=== PATIENT | male | born 1980 | race Caucasian/White ===

== ENCOUNTER 2021-02-03 19:29 | Emergency (ER) | payer MEDICARE, MEDICAID ==
[~2021-02-03] VITALS: Ht 185.4 cm; Wt 95.5 kg
[2021-02-03 20:37] LABS: BASOPHILS % (AUTO) 0.2 % (0-1); EOSINOPHILS # (AUTO) 0.1 X10'3 (0-0.9); EOSINOPHILS % (AUTO) 1.4 % (0-6); HEMATOCRIT 43.8 % (42.0-52.0); HEMOGLOBIN 15.1 g/dl (14.0-17.9); LYMPHOCYTES # (AUTO) 2.1 X10'3 (1.1-4.8); LYMPHOCYTES % (AUTO) 24.6 % (21-51); MEAN CORPUSCULAR HEMOGLOBIN 32.9 PG (27.0-31.0); MEAN CORPUSCULAR HGB CONC 34.5 g/dL (33.0-36.5); MEAN CORPUSCULAR VOLUME 95.4 FL (78-98); MEAN PLATELET VOLUME 8.8 FL (7.4-10.4); MONOCYTES # (AUTO) 0.7 X10'3 (0-0.9); MONOCYTES % (AUTO) 7.8 % (2-12); NEUTROPHILS # (AUTO) 5.5 X10'3 (1.8-7.7); PLATELET COUNT 304 X10'3 (140-440); RED BLOOD COUNT 4.59 X10'6 (4.70-6.10); RED CELL DISTRIBUTION WIDTH 13.4 % (11.5-14.5); WHITE BLOOD COUNT 8.4 X10'3 (4.5-11.0)
[2021-02-03 20:45] LABS: ALANINE AMINOTRANSFERASE 34 U/L (12-78); ALBUMIN 4.1 G/DL (3.4-5.0); ALBUMIN/GLOBULIN RATIO 1.1 (1.1-1.5); ALKALINE PHOSPHATASE 61 IU/L (46-116); ANION GAP 13 (8-16); ASPARTATE AMINO TRANSFERASE 25 U/L (10-37); BILIRUBIN,TOTAL 0.3 MG/DL (0.1-1.0); BLOOD UREA NITROGEN 15 MG/DL (7-18); BUN/CREATININE RATIO 13.3 (5.4-32.0); CALCIUM 8.8 MG/DL (8.5-10.1); CHLORIDE 105 MMOL/L (99-107); CREATININE 1.13 MG/DL (0.60-1.10); GLUCOSE 119 MG/DL (70-104); POTASSIUM 3.5 MMOL/L (3.5-5.1); SODIUM 144 MMOL/L (135-145); TOTAL CARBON DIOXIDE 26.1 MMOL/L (24-32); TOTAL PROTEIN 7.7 G/DL (6.4-8.2); eGFR 73 ML/MIN
[2021-02-03] MEDS ORDERED: PANT-47 PO (21:09)
[2021-02-03 21:21] VITALS: BP 130/73
== END 2021-02-03 21:24 | disposition home or self-care (01) ==
LOC: ER 19:29
DX: R07.89 Other chest pain (principal); E11.9 Type 2 diabetes mellitus without complications; K21.9 Gastro-esophageal reflux disease without esophagitis; F12.90 Cannabis use, unspecified, uncomplicated; F17.200 Nicotine dependence, unspecified, uncomplicated; Z72.89 Other problems related to lifestyle; Z98.890 Other specified postprocedural states; Z56.0 Unemployment, unspecified; Z79.899 Other long term (current) drug therapy
CPT/HCPCS: 36415; 71045; 80053; 83880; 84484; 85025; 93005; 99285

== ENCOUNTER 2024-11-24 17:04 | Inpatient (IN) | payer MEDICAID, MEDICARE ==
[~2024-11-24] VITALS: Ht 185.4 cm; Wt 88.6 kg
[~2024-11-24 17:04] MED LIST: PANT-47 PO
--- NOTE | 2024-11-24 17:21 | ELECTROCARDIOGRAPH REPORT ---
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 JEREMI Garcia Measurements Intervals [place] Rate: 88 P: 87 [place]: 142 QRS: 91 QRSD: 91 T: 36 QT: 327 QTc: 396 Interpretive Statements Sinus rhythm Right atrial enlargement Borderline right axis deviation Consider left ventricular hypertrophy ST elev, probable normal early repol pattern Electronically Signed On 11-24-2024 17:59:[address] JEREMI Garcia Please click the below link to view image of tracing.
--- NOTE | 2024-11-24 17:24 | Physician Documentation ---
History of Present Illness ~ Chief Complaint: Chest Pain Stated Complaint: MULTIPLE MED COMPLAINTS Time Seen by MD: 18:27 [facility] HPI This is a 44-year-old male who presents with one-week of chest tightness, patient reports chest tightness is across his entire central chest though does not radiate, patient reports feeling of lightheadedness and episodes of near- syncope in the past week. Patient additionally reports intermittent feeling of numbness to left arm. Patient reports he is on testosterone therapy, otherwise the only other medications he takes are related to chronic back pain. Medication Reconciliation Allergies: Coded Allergies: morphine (Verified Allergy, Unknown, 02/03/21) Scheduled Aspirin (Ecotrin*), 1 TAB PO DAILY Atorvastatin Calcium (Atorvastatin Calcium), 40 MG PO DAILY Gabapentin (Gabapentin), 300 PO BID, (Reported) Metoprolol Succinate (Metoprolol Succinate), 25 MG PO DAILY Scheduled PRN Acetaminophen (Tylenol), 1-2 TAB PO QID PRN PRN for pain or fever, (Reported) Nitroglycerin SL* (Nitrostat SL*), 0.4 MG SL Q5M PRN for chest pain Discontinued Medications Meloxicam (Meloxicam), 1 TAB PO DAILY, (Reported) Pantoprazole Sodium (PROTONIX tablet), 1 TAB PO DAILY Discontinued Reason: patient no longer taking Past Medical History Past Medical History: GERD, Diabetes Past Surgical History: orthopedic surgeries Alcohol Use: Occasionally Drug Use: marijuana Lives with: Spouse Lives In: Home Occupation: unemployed, other Review of Systems ROS As stated above in the HPI, otherwise all systems are reviewed and negative. Physical Exam Vital Signs: Temperature: 98.6, Source: Temporal, Heart Rate: 104, Respiratory Rate: 18, BP: 150/81, Pulse Oximetry: 97, Weight: 87.750 Oxygen Flow Rate: 0 Physical Exam VITALS: Reviewed and as above. GENERAL: Alert, nontoxic appearing, no apparent distress. HEENT: RESPIRATORY: No increased work of breathing, no respiratory distress, speaking in full clear sentences, clear lung sounds in all mg CHEST: Nontender to palpation CV: Regular rate and rhythm no murmur BACK: GI: MUSCULOSKELETAL: SKIN: NEURO: PSYCH: Progress Progress Note I spoke with hospitalist resident who kindly accepts patient for admission. Results/Orders Results/Orders Orders - IVRGINIA NOVA Hospitalist (11/24/24 20:52) Fill Out Med Reconciliation (11/24/24 20:52) Completed Orders - VIRGINIA NOVA W[employer] STOCK CLERK Aspirin 81mg Chew Tablet (Aspirin 81mg C (11/24/24 19:40) Nitroglycerin Sublingual Tab (Nitrostat (11/24/24 19:40) Stat Ekg (11/24/24 19:37) Vital Signs 11/24/24 11/24/24 11/24/24 11/24/24 17:12 19:02 19:12 19:13 Temp 98.6 Pulse 104 85 Resp 18 18 18 B/P (MAP) 150/81 150/84 (106) Pulse Ox 97 98 O2 Delivery Room Air* O2 Flow Rate 0 0 0 FiO2 21 Laboratory Tests Test 11/24/24 17:28 11/24/24 18:25 11/24/24 18:55 11/24/24 20:07 White Blood Count 10.7 Red Blood Count 4.88 Hemoglobin 16.2 Hematocrit 46.7 Mean Corpuscular Volume 95.8 Mean Corpuscular Hemoglobin 33.2 H Mean Corpuscular Hemoglobin Concent 34.6 Red Cell Distribution Width 14.7 H Platelet Count 457 H Mean Platelet Volume 7.7 Neutrophils (%) (Auto) 69.1 Lymphocytes (%) (Auto) 20.8 L Monocytes (%) (Auto) 7.8 Eosinophils (%) (Auto) 1.8 Basophils (%) (Auto) 0.5 Neutrophils # (Auto) 7.4 Lymphocytes # (Auto) 2.2 Monocytes # (Auto) 0.8 Eosinophils # (Auto) 0.2 Basophils # (Auto) 0.1 CBC Comment Sodium Level 136 Potassium Level 4.1 Chloride Level 98 L Carbon Dioxide Level 28.7 Anion Gap 9 Blood Urea Nitrogen 20 H Creatinine 1.39 H Estimated GFR/1.73 m2 56 BUN/Creatinine Ratio 14.4 Glucose Level 102 Hemoglobin A1c 5.4 Calcium Level 9.7 Phosphorus Level 4.4 Magnesium Level 2.3 Total Bilirubin 0.2 Aspartate Amino Transf (AST/SGOT) 30 Alanine Aminotransferase (ALT/SGPT) 32 Alkaline Phosphatase 113 Troponin I High Sensitivity 81 *H 73 69 Pro-B-Type Natriuretic Peptide < 30 Total Protein 8.3 H Albumin 4.4 Globulin 3.9 Albumin/Globulin Ratio 1.1 Thyroid Stimulating Hormone (TSH) 1.70 Chemistry Comments Urine Specimen Description Cln catch midstream Urine Color Yellow Urine Clarity Clear Urine pH 7.0 Urine Specific [place] 1.010 Urine Protein Negative Urine Glucose (UA) Negative Urine Ketones Negative Urine Occult Blood Negative Urine Nitrite Negative Urine Bilirubin Negative Urine Urobilinogen 0.2 Urine Leukocyte Esterase Negative Volume Urine Centrifuged 10 ml Urine Eosinophils No eos Urine Random Creatinine 114.0 Urine Random Sodium 102 Urine Comment Urine Opiates Screen Negative Urine Methadone Screen Negative Urine Fentanyl Screen Negative Urine Barbiturates Screen Negative Urine Phencyclidine Screen Negative Urine Amphetamines Screen Negative Urine Benzodiazepines Screen Negative Urine Cocaine Screen Negative Urine Cannabinoids Screen Positive Drug Screen Comment Troponin I High Sens Percent Delta 9 5 Troponin I Hi Sens Absolute Change -8 -4 EKG/XRAY/CT/US/VASC/MRI EKG #1: Additional Comment EKG at 5:19 p.m. Interpreted by myself as: Sinus rhythm at a rate of 88, normal axis, nonspecific ST-T segment changes EKG #2: Additional Comment EKG at 7:51 p.m. interpreted by myself as: Sinus rhythm at a rate of 65 with PVC, normal axis, nonspecific ST segment changes Chest X-Ray : Additional Comments Exam: CHEST,SINGLE VIEW CHEST RADIOGRAPH Indication: CP Technique: Single frontal view of the chest was obtained Comparison: CHEST,SINGLE VIEW on DOS: 02/03/21 FINDINGS: Lines and Tubes: None Lungs: No focal consolidation. Pleura: No effusion. No pneumothorax. Cardiomediastinal contours: Unremarkable Bones: No acute osseous abnormality. IMPRESSION: No acute cardiopulmonary disease. Electronically Signed by:ZOE FISH DO Date & Time: 11/24/241758 Dictated by: ZOE FISH DO Dictation date and time: 11/24/241758 I have reviewed and agree with the radiology report. I have reviewed and interpreted the imaging as: No focal consolidation or pneumothorax Heart Score: Heart Score Response (Comments) Value History Highly Suspicious 2 EKG Repolarization Disturb 1 Age <45 0 Risk Factors No known risk factors 0 Troponin 1-2 x's Normal limit 1 Total 4 Medical Decision Making Findings MSE performed in triage and patient returned to ED lobby by nursing staff to await available ED room. ACS protocol initiated by nursing staff. This 44-year-old male presented with one-week of chest pressure and shortness of breath along with several episodes of near-syncope, that has nonspecific ST changes on initial EKG and initial troponin was elevated, given these findings patient has a heart score of four and will require inpatient admission for further monitoring and evaluation, it was reassuring repeat troponin did decrease and patient is hemodynamically stable. Additionally patient responded well to a dose of nitroglycerin with the reported decrease in chest pain. Hospitalist team paged and accepts patient for admission. Differential Dx:Considerations: Include: angina, aortic dissection, chest wall pain, cholelithiasis, CHF, costochondritis, esophageal reflux/spasm, gastritis, herpes zoster, myocardial infarction, pericarditis, pleuritis, pneumonia, pneumothorax, pulmonary embolus Departure Disposition: 09 ADMITTED INPATIENT Admitted to Inpatient Unit: to hospitalist Impression: Primary Impression: Chest pain Qualified Codes: R07.9 - Chest pain, unspecified Condition: Guarded Referrals: NO PRIMARY CARE PROVIDER (PCP) Prescriptions Aspirin (Ecotrin*) 81 Mg Tablet.dr 1 TAB PO DAILY, #30 TAB.SR Prov: JEROME BENAVIDEZ RES 11/26/24 Metoprolol Succinate (Metoprolol Succinate) 25 Mg Tab.sr.24h 25 MG PO DAILY, #30 TAB.SR Prov: JEROME BENAVIDEZ RES 11/26/24 Nitroglycerin SL* (Nitrostat SL*) 0.4 Mg Tablet 0.4 MG SL Q5M PRN for chest pain, #10 TAB Prov: JEROME BENAVIDEZ RES 11/26/24 Atorvastatin Calcium (Atorvastatin Calcium) 20 Mg Tablet 40 MG PO DAILY for 30 Days, #60 TAB Prov: JEROME BENAVIDEZ RES 11/26/24 Signature Scribe Signature: No Scribe Attestation: The note accurately reflects work and decisions made by me.CHRISTY Chan 11/27/24 12:14 [facility] NOVA Nov 24, 2024 17:24
[2024-11-24 17:42] LABS: MEAN PLATELET VOLUME 7.7 FL (7.4-10.4); RED CELL DISTRIBUTION WIDTH 14.7 % (11.5-14.5)
[2024-11-24 18:01] LABS: CREATININE 1.39 MG/DL (0.60-1.10); TOTAL CARBON DIOXIDE 28.7 MMOL/L (24-32); eCRCL 78 ML/MIN; eGFR 56 ML/MIN
--- NOTE | 2024-11-24 18:01 | RADIOLOGY REPORT ---
CHEST RADIOGRAPH Indication: CP Technique: Single frontal view of the chest was obtained Comparison: CHEST,SINGLE VIEW on DOS: 02/03/21 FINDINGS: Lines and Tubes: None Lungs: No focal consolidation. Pleura: No effusion. No pneumothorax. Cardiomediastinal contours: Unremarkable Bones: No acute osseous abnormality. IMPRESSION: No acute cardiopulmonary disease.
[2024-11-24 18:11] LABS: PRO BRAIN NATRIURETIC PEPTIDE < 30 PG/ML (0-125)
--- NOTE | 2024-11-24 19:54 | ELECTROCARDIOGRAPH REPORT ---
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
[2024-11-24] MEDS ORDERED: potassium Cl 20 mEq SR tablet PO PRN ×2 (21:45)
[2024-11-24] MEDS ORDERED: magnesium sulf-water 2g/50mL 50 ML IV PRN (21:45)
[2024-11-24] MEDS ORDERED: magnesium Cl slow-release 64mg tablet PO PRN (21:45)
[2024-11-24] MEDS ORDERED: ondansetron/PF 4mg/2ml inj IV PRN (21:45)
[2024-11-24] MEDS ORDERED: mag hydrox/Alum hydrox/simeth 30ml oral suspension PO PRN (21:45)
[2024-11-24] MEDS ORDERED: magnesium sulf-water 4G/100mL 100 ML IV PRN (21:45)
[2024-11-24] MEDS ORDERED: potassium Cl 40MEQ/1/2NS 520ml 520 ML IV PRN (21:45)
[2024-11-24] MEDS ORDERED: magnesium hydroxide 30ml (MOM) UD suspension PO PRN (21:45)
[2024-11-24 22:00] VITALS: BP 148/77; PULSE 74; RESP 14; TEMP 97.4; O2SAT 97
[2024-11-24 22:00] LABS: PHOSPHORUS 4.4 MG/DL (2.3-4.5)
--- NOTE | 2024-11-24 22:16 | HISTORY AND PHYSICAL-Residence ---
History & Physical Providers to CC Resident Creating Document: JOSE COLON, ELLYN ~ History of Present Illness Primary Medical Doctor: LUCA (past) Reason for Admit\Complaint: Chest pain, rule out ACS History of Present Illness For the year old male with past medical history of chronic back pain who presented to the ED with chief complaint of chest discomfort since the last two weeks. He reports that he has a chest discomfort in the center of the chest that feel like a pill stuck in his esophagus that has been present over the last two weeks and has been on and off. Reported that the chest discomfort worsens with taking deep breaths. Denied any association with the exertion. He also reports that he has a associated difficulty breathing and shortness of breaths that has been worsening over the last two weeks. He stated that he has been more short of breath than usual while working out. He stated that he has been working out more aggressively over the last two weeks as he has been preparing for a [employer] and has been more anxious than usual. He stated that he has noticed that he has been dizzy while working out also correlates with his chest pain. He denies any loss of consciousness or trauma to the head because of the dizziness. The dizziness is not related to change of position or getting up suddenly. He denied any alcohol or recreational drug use. He also reports associated increased sweating in his palms. He denied any recent fever or chills. He denied any headaches, confusion, cough, nausea, vomiting, abdominal pain, diarrhea or constipation. The patient's at the bedside and reported that the patient has been extremely anxious and stress test since the last two weeks. She stated that the patient has not been himself and thinks it is most likely is due to stress. They reported that the patient significantly anxious and [place] He took CBD gummies of his which knocked him out and fell asleep in the journey. The patient also reported that he is on testosterone supplementation. He stated that currently the chest discomfort is very minimal and improved after taking the nitroglycerin in the ER. Allergies: Coded Allergies: morphine (Verified Allergy, Unknown, 02/03/21) Home Medications Home Medications Active PROTONIX tablet (Pantoprazole Sodium) 40 Mg Tablet. 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 Take CBD gummies very rarely. Smoking: Non-Smoker Alcohol Use: Occasionally Drug Use: Marijuana Lives with: Spouse Lives In: Home Occupation: unemployed, other ROS ROS As stated above in the HPI, otherwise all systems are reviewed and negative. Exam Vitals: Vital Signs Date Time Temp Pulse Resp B/P (MAP) Pulse Ox O2 Delivery O2 Flow Rate FiO2 11/24/24 19:13 85 18 150/84 (106) 98 0 11/24/24 19:12 Room Air* 21 11/24/24 17:12 98.6 General: General: Awake and Alert, looks anxious but is not in any acute distress. HEENT: Conjunctiva pink, Sclera clear, Mucus Membranes moist. Neck: Supple without masses and tenderness. Resp: Unlabored. Lungs clear to auscultation bilaterally. Heart: Regular Rate and rhythm, normal S1 and S2 without murmur, rub or gallop. Abdomen: Soft and non tender no organomegaly Extremities: No cyanosis,clubbing or edema. Skin: Warm and Dry. Neurology: Cranial nerves 2-12 intact. No focal motor or sensory deficits. Musculoskeletal: No deformities noted. No restricted range of motions. Diagnostic Data Last Recorded Lab Results: 11/24/24 1728 11/24/24 1728 Advance Care Planning Advanced Care planning: Add on additional 30 min Additional Plan Nonspecific chest pain Rule out acute coronary syndrome Heart score-four Initial EKG shows sinus rhythm with no significant ST segment elevations. There is signs of right atrial enlargement with a right axis deviation. Repeat EKG showed sinus rhythm with a no ST segment changes. The patient's initial troponin was elevated at 81. The next two troponins trended down to 73, 69. Patient received one dose of aspirin 324 mg in the ER. Nitroglycerin 0.4 mg sublingually for chest pain. Continue telemetry monitoring. Repeat EKG for the chest pain returns. We will order a Lexiscan tomorrow in the a.m. to check for any underlying reversible ischemia. Echocardiography to be done. Follow up with the A1c, lipid panel and TSH. P.o. Protonix for GI prophylaxis Acute kidney injury Most likely secondary to vasomotor nephropathy from dehydration. Follow up with the urine lytes and other urinary studies. Started the patient on IV fluids for hydration. Continue monitoring the patient's renal function C. Chronic back pain We will restart the patient's home medications once med reconciliation is done. Currently denied any severe pain. CODE STATUS: Full code DVT prophylaxis: SubQ heparin GI prophylaxis: P.o. Protonix Diet: NPO for Lay Disposition: Continue close monitoring. Follow up with Lexiscan. Anticipate discharge home in the next 48 hours. Jose Colon MD Internal Medicine Resident, PGY-3 Addendum I personally reviewed the chart, labs and imaging and reviewed the patient with the team. I agree with the assessment and plan as documented by the resident. Patient was seen through remote audio-visual assessment through HIPAA compliance setup. Date of Service: Nov 24, 2024 Billing Provider: PJ HERNANDEZ MD,JOSE DAVISON, [facility] Nov 24, 2024 22:16 PJ HERNANDEZ MD Nov 25, 2024 01:02
[2024-11-24] MEDS ORDERED: ACET-890 PO (22:22)
[2024-11-24] MEDS ORDERED: MELO-102 PO (22:22)
[2024-11-24] MEDS ORDERED: GABA-1405 PO (22:22)
[2024-11-24 22:25] LABS: LEUKOCYTE ESTERASE ,URINE NEGATIVE (Neg); NITRITES, URINE NEGATIVE (Neg); OCCULT BLOOD,URINE NEGATIVE (Neg)
[2024-11-24] MEDS ORDERED: metoprolol tartrate 1mg/ml inj IV PRN (22:25)
[2024-11-24] MEDS ORDERED: aminophylline 250mg/10ml inj. IV PRN (22:25)
[2024-11-24 22:28] LABS: UA COLLECTION TYPE CLN CATCH MIDSTREAM
[2024-11-24 22:32] LABS: CREATININE,URINE RANDOM 114.0 MG/DL; URINE AMPHETAMINE SCREEN NEGATIVE (Neg); URINE BARBITUATE SCREEN NEGATIVE (Neg); URINE BENZODIAZEPINES SCREEN NEGATIVE (Neg); URINE CANNABINOID SCREEN POSITIVE (Neg); URINE COCAINE SCREEN NEGATIVE (Neg); URINE METHADONE SCREEN NEGATIVE (Neg); URINE OPIATE SCREEN NEGATIVE (Neg); URINE PHENCYCLIDINE SCREEN NEGATIVE (Neg)
[2024-11-24 22:47] LABS: UA EOSINOPHILS NO EOS /HPF
[2024-11-24] MEDS: normal saline 1000ml 1,000 ML IV SCH (23:23)
[2024-11-25] VITALS (16 sets, daily range): BP systolic 111–142; BP diastolic 38–83; PULSE 60–107; RESP 10–22; TEMP 97.3–97.9; O2SAT 97–98
[2024-11-25 02:18] LABS: MEAN PLATELET VOLUME 7.9 FL (7.4-10.4); RED CELL DISTRIBUTION WIDTH 14.9 % (11.5-14.5)
[2024-11-25 02:47] LABS: CHOL/HDL RATIO 9.3 (0.00-4.99); CREATININE 1.29 MG/DL (0.60-1.10); LDL CHOLESTEROL 228 MG/DL (50-100); TOTAL CARBON DIOXIDE 31.1 MMOL/L (24-32); eCRCL 84 ML/MIN; eGFR 61 ML/MIN
[2024-11-25] MEDS: K and/or MAG REPLACEMENT MC SCH (08:00)
[2024-11-25] MEDS: docusate sod 100mg capsule PO SCH (08:00)
[2024-11-25] MEDS ORDERED: pantoprazole 40mg Tablet.DR PO SCH (08:05)
[2024-11-25] MEDS: pantoprazole 40mg Tablet.DR PO SCH (08:19)
[2024-11-25] MEDS: heparin, porcine 5000 units/ml vial SQ SCH (08:19)
[2024-11-25] MEDS: aspirin 81mg, enteric-coated 1 TAB TABLET.DR PO SCH (08:19)
[2024-11-25] MEDS: regadenoson 0.4mg/5ml syringe IV PRN (09:18)
--- NOTE | 2024-11-25 11:13 | RADIOLOGY REPORT ---
Reason for study/Clinical History: Chest pain Comparison Study: None Myocardial Perfusion Study with SPECT Technique: The patient received an intravenous injection of 8.0 mCi of technetium-99m Sestamibi whi renetta at rest. After a short delay, SPECT tomographic images of the heart were obtained. The patient traci pike went to the stress lab where they received an intravenous Lexiscan utilizing standard protocol. 32.0 mCi of technetium-99m Sestamibi was injected intravenously immediately after the start of the infusion. Gated SPECT tomographic images of the heart were acquired and processed. Findings: Rotating planar images show no significant attenuation artifact. The left ventricular size is within normal limits. Stress tomographic images demonstrate normal perfusion. Resting tomographic images demonstrate a similar pattern. Gated portion of the study shows no myocardial thickening. The left ventricular ejection fraction is 40%. (normal greater than 50%) Impression: Normal left ventricular size, wall motion, and function, without evidence of infarction or of myocard ium at ischemic risk. The left ventricular ejection fraction is 40%.
--- NOTE | 2024-11-25 11:38 | PROGRESS NOTE- Residence ---
Progress Note - Resident Providers to CC Resident Creating Document: PATRICIA BURNS, ELLYN CC: AMOR MORGAN MD ~ Antibiotic Timeout Antibiotic Ordered?: No Subjective Patient was seen and examined with his by his side. Patient still complains of left-sided numbness. Denies any chest pain today. Patient underwent his Lexiscan today which showed EF of 40%. Echocardiogram reported EF of 65-70% Objective Vital Signs Date Time Temp Pulse Resp B/P (MAP) Pulse Ox O2 Delivery O2 Flow Rate FiO2 11/25/24 09:47 84 18 122/56 98 Room Air 11/25/24 02:00 97.9 11/24/24 19:13 0 11/24/24 19:12 21 General: Awake, oriented to person, place and time, HEENT: Conjunctive are pink, sclerae clear, no icterus, pupil is equal in both sides, reactive to light, no ear discharge, no pharyngeal erythema or an edema. Right cauliflower ear noted Neck: Supple, no JVD, no lymphadenopathy and thyromegaly. Chest: Equal air entry on both lungs, no additional sounds no rhonchi no wheezing at the moment. Cardiovascular: S1-S2 regular sinus rhythm and, regular rate, no gallops, no rubs, no murmurs Abdomen: No visible peristalsis, Bowel sounds present on auscultation, soft, no guarding, no rigidity Extremities: No obvious deformities, no pitting edema bilaterally, capillary refill intact, peripheral pulsations are intact on both sides Central Nervous System: No focal neurological deficits, no motor or sensory weakness in all 4 extremities, could move all 4 extremities, 2+ deep tendon reflexes, negative Babinski. Complains of numbness left arm Musculoskeletal: No joint swelling, deformities, inflammations, and no scoliosis and back tenderness Skin: Warm and dry. Result Diagram: 11/25/2414411/25/24 014 Plan Plan Unstable angina, ACS ruled out Heart score-4 Pain was rated 7/10 in intensity and radiating to his back, increased chest pain on exertion, deep breaths Initial EKG showed sinus rhythm with no significant ST segment elevations. Right axis deviation Repeat EKG showed sinus rhythm with a no ST segment changes. The patient's initial troponin was elevated at 81, 73, 69(trended down) Patient received one dose of aspirin 324 mg and nitroglycerin 0.4 mg sublingual in the ER Lexiscan done today reported, LVEF 40%, normal left ventricular size and wall motion. Echocardiogram reported LVEF is 65-70%.Normal LV size and wall thickness. Overall systolic function is normal. 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 Plan -Continue telemetry monitoring -continue monitoring the patient's blood pressure -follow-up with D-dimer -initiated the patient on atorvastatin 40 mg -continue aspirin 81 mg Hyperlipidemia(newly diagnosed) ASCVD score 12.4% Triglycerides 334, cholesterol 333, LDL cholesterol 229 Plan -initiated the patient on atorvastatin 40 mg -continue aspirin 81 mg Prerenal acute kidney injury secondary to vasomotor nephropathy FENA <0.9% Downtrending of creatinine from 1.3 to 1.2 today Plan: Continue IV fluids Chronic back pain Patient normally takes gabapentin Hold gabapentin for now CODE STATUS: Full code DVT prophylaxis: SubQ heparin GI prophylaxis: Protonix Diet: Heart healthy diet Disposition: Patient will require primary care doctor on discharge, anticipate discharge tomorrow Patricia Burns Internal medicine resident PGY-1 Addendum: Chart reviewed by me agree with the assessment and plan as above. Patient is a 44-year-old male admitted for unstable angina, workup for ACS has been negative. Lexiscan no ischemic defects noted. Lipid panel: Significantly elevated LDL, triglycerides and total cholesterol. Started aspirin statin and a beta js. Was here in 2010 for similar complaints workup was done for chest pain, including stress test which was negative. Echo normal EF, dimer negative. Patient will require a PCP. Likely to be discharged in a.m.. Tanya Benavidez MD IM resident, PGY 3 Date of Service: Nov 25, 2024 Billing Provider: AMOR MORGAN MD, JAHNAVI, RES Nov 25, 2024 11:38 TANYA BENAVIDEZ, RES Nov 25, 2024 18:51
[2024-11-25 11:56] LABS: OSMOLALITY 294 MOSM/K (280-300)
[2024-11-25] MEDS: metoprolol succinate 25mg (24-HOUR) SR. Tablet PO SCH (12:21)
--- NOTE | 2024-11-25 15:59 | RADIOLOGY REPORT ---
EXAM: CT CT CERVICAL SPINE INDICATION: pain EXAM DATE: 11/25/2024 02:45 PM COMPARISON: None TECHNIQUE: Multiple axial CT images of the cervical spine were obtained using bone algorithm. Axial a nd coronal reformatting was done. Bone and soft tissue windows were reviewed. Dose-length product is 550 mGy*cm FINDINGS: No acute compression deformity, fracture, or subluxation. Mild multilevel degenerative changes with mild multilevel foraminal stenosis due to facet hypertrophy and uncovertebral hypertrophy. No high-grade spinal canal stenosis. The prevertebral soft tissues are not thickened. Thyroid is unremarkable. Limited sections of the lung apices demonstrate no pneumothorax. IMPRESSION: 1. No acute compression fractures or subluxation.
--- NOTE | 2024-11-25 17:10 | CARDIOLOGY REPORT ---
APPROVED REPORT EXAM: Comprehensive 2D, Doppler, and color-flow Echocardiogram. Patient Location: [facility] Blood Pressure: 111/38 mmHg Heart Rate: 68 bpm Indications Angina Troponin: 83 NO HYDROTECHNICAL SPECIALIST NO Previous ECHO 2D Dimensions LA Diam3.1 cm IVSd 1.0 (0.7-1.1cm) LVDd 5.0 cm PWd 1.0 (0.7-1.1cm) IVSs 1.3 (0.8-1.2cm) LVDs 3.3 (2.5-4.0cm) PWs 1.6 (0.8-1.2cm) LVOT Diameter 2.21 (1.8-2.4cm) LVEF(%) 64.7 (>50%) IVC 12.65 mm FS (%) 35.5 % SV 78.3 ml CO 5.5 L/min M-Mode Dimensions Left Atrium(MM) 4.17 (2.5-4.0cm) Aortic Root 3.30 (2.2-3.7cm) Aortic Cusp Exc 1.91 (1.5-2.0cm) MV EPSS 0.3 (<0.5cm) Aortic Valve AoV Peak Chucky. 191.6 cm/s AoV VTI 32.1 cm AO Peak GR. 14.7 mmHg AO Mean GR. 9 mmHg LVOT VTI 24.43 cm LVOT Peak Chucky. 140.5 cm/s EDWARD(VTI)/BSA 2.92 cm2/m2 EDWARD (VTI) 2.92 cm2 Mitral Valve MV E Velocity 68.2 cm/s MV Peak Gr. 3 mmHg MV DECEL TIME 256 ms MV A Velocity 59.7 cm/s MV PHT 60 ms E/A Ratio 1.1 MVA (PHT) 3.67 cm2 MV VMax90.0 cm/s TDI Lateral E' P. V18.61 cm/s E/Lateral E' 3.7 Tricuspid Valve TR P. Velocity 248 cm/s RAP ESTIMATE 10 mmHg TR Peak Gr. 25 mmHg RVSP 35 mmHg LEFT VENTRICLE Normal LV size and wall thickness. Overall systolic function is normal. Overall LVEF is 65-70%. RIGHT VENTRICLE RV is normal size and function. ATRIA The left atrium size is normal. AORTIC VALVE Trileaflet AV appears mildly sclerotic without stenosis. Trivial insufficiency. MITRAL VALVE Mitral valve leaflets are mildly thickened without stenosis. Trace regurgitation. TRICUSPID VALVE The tricuspid valve is normal in structure with trace regurgitation. PULMONIC VALVE The pulmonary valve is normal in structure with physiologic insufficiency. GREAT VESSELS The aortic root is normal in size. The IVC is normal in size and collapses >50% with inspiration. PERICARDIUM Normal pericardium. No effusion. Other Information Study Quality: Adequate Conclusion LVEF is 65-70%. Overall LVEF is 65-70%. Normal LV size and wall thickness. Overall systolic function is normal. RV is normal size and function. Trileaflet AV appears mildly sclerotic without stenosis. Trivial insufficiency. Mitral valve leaflets are mildly thickened without stenosis. Trace regurgitation. The tricuspid valve is normal in structure with trace regurgitation. The pulmonary valve is normal in structure with physiologic insufficiency.
[2024-11-25] MEDS ORDERED: sacubitril/valsartan 24mg-26mg tablet PO SCH (20:00)
[2024-11-26 06:00] VITALS: BP 130/66; PULSE 74; RESP 18; TEMP 97.3; O2SAT 98
[2024-11-26 07:30] LABS: MEAN PLATELET VOLUME 8.0 FL (7.4-10.4); RED CELL DISTRIBUTION WIDTH 15.0 % (11.5-14.5)
[2024-11-26 07:58] LABS: CREATININE 1.14 MG/DL (0.60-1.10); TOTAL CARBON DIOXIDE 27.1 MMOL/L (24-32); eCRCL 95 ML/MIN; eGFR 70 ML/MIN
[2024-11-26 08:00] VITALS: RESP 18; O2SAT 98
[2024-11-26 11:00] VITALS: BP 131/62; PULSE 64; RESP 18; TEMP 98; O2SAT 98
[2024-11-26] MEDS ORDERED: ATOR20TA66 PO (12:04)
[2024-11-26] MEDS ORDERED: NITR0.4T51 SL (12:04)
[2024-11-26] MEDS ORDERED: ASPI-1071 PO (12:04)
[2024-11-26] MEDS ORDERED: METO-395 PO (12:04)
--- NOTE | 2024-11-26 17:34 | DISCHARGE SUMMARY-Residence ---
Discharge Summary Providers to CC Resident Creating Document: JACQUELYN BURNS RES CC: AMOR MORGAN MD ~ Discharge Summary Admission Diagnosis: Chest pain, Rule out ACS Hospital Course DATE OF ADMISSION: 11/24/2024 DATE OF DISCHARGE: 11/26/2024 Discharge Diagnosis\Comment: Possible unstable angina Hyperlipidemia Hypertension Operations\Procedures: Lexiscan Consultants: none Complications: none Condition on DC: Stable New Medications: Aspirin (Ecotrin*) 81 Mg Tablet.dr 1 TAB PO DAILY, #30 TAB.SR Atorvastatin Calcium (Atorvastatin Calcium) 20 Mg Tablet 40 MG PO DAILY for 30 Days, #60 TAB Metoprolol Succinate (Metoprolol Succinate) 25 Mg Tab.sr.24h 25 MG PO DAILY, #30 TAB.SR Nitroglycerin SL* (Nitrostat SL*) 0.4 Mg Tablet 0.4 MG SL Q5M PRN for chest pain, #10 TAB Continued Medications: Acetaminophen (Tylenol) 325 Mg Tablet 1-2 TAB PO QID PRN PRN for pain or fever for 7 Days, #60 TAB Gabapentin (Gabapentin) 600 Mg Tablet 300 PO BID Discontinued Medications: Meloxicam (Meloxicam) 15 Mg Tablet 1 TAB PO DAILY for 30 Days, #30 TAB 0 Refills Discharge Summary: Hospital Course This is a 37-year-old male presented to the ER with complain of chest discomfort for the past two weeks. Initial evaluation including ECG showed sinus rhythm,without significant ST elevation, He was administered 324 mg and nitroglycerin 0.4 mg sublingually, initial troponin was elevated 89 which trended downward to 69 on repeat testing, in view of this a Lexiscan test test test was performed which was negative for ischemia and Echo was performed which revealed ejection fraction of 65-70%. His blood pressure was high, he was given metoprolol for that which lead to significant improvement in blood pressure. In addition to that he also had MIS for which IV fluids were initiated and his creatinine was improving. Patient was medically stable for discharge Physical Examination on Discharge General: awake, alert oriented to place, time, and person HEENT: No pallor present, no icterus, moist mucous membranes Neck: No masses and tenderness Resp: Unlabored. Lungs clear to auscultation bilaterally. Chest: Normal expansion. Cardiovascular: Regular Rate and rhythm, normal S1 and S2 without murmur, rub or gallop Abdomen: Soft and mildly tender in epigastrium, no organomegaly, no guarding and rigidity, bowel sounds present Neuro: No focal weakness in the upper and lower limb muscles, power of the muscles 5/5 bilateral upper and lower extremities, normal reflexes bilaterally. Cranial nerves intact Extremities: No cyanosis,clubbing or edema, Small minor wound noted on right foot which was cleaned. Skin: Warm and Dry. Psych: Normal affect Labs on Discharge WBC 7.6 Hgb 15.2 Hct: 44.9 Na:139 K 4.6 Creatinine: 1.14 BUN: 21 Imaging. Lexiscan: Normal left ventricular size, wall motion, and function, without evidence of infarction or of myocardium at ischemic risk. Echo: Overall LVEF is 65-70%. Normal LV size and wall thickness. Overall systolic function is normal. Cervical spine CT: No acute compression deformity, fracture, or subluxation. Mild multilevel degenerative changes with mild multilevel foraminal stenosis due to facet hypertrophy and uncovertebral hypertrophy. No high-grade spinal canal stenosis. The prevertebral soft tissues are not thickened. Thyroid is unremarkable. Limited sections of the lung apices demonstrate no pneumothorax. IMPRESSION: No acute compression fractures or subluxation. Discharge instructions FOLLOW UP WITH PCP WITHIN TWO WEEKS. YOU WILL GET A REFERRAL TO GET SET UP AN APPOINTMENT WITH PRIMARY CARE PROVIDER AT [facility], CALL AND MAKE AN APPOINTMENT TO SEE A PROVIDER. WE ARE DISCHARGING YOU WITH ASPIRIN 81 MG P.O. DAILY ATORVASTATIN 40 P.O. DAILY FOR YOUR HIGH CHOLESTEROL AND METOPROLOL FOR YOUR BLOOD PRESSURE. YOUR CHOLESTEROL PANEL HAS BEEN HIGH YOU WILL HAVE TO TAKE THE ATORVASTATIN AND REPEAT LIPID PANEL IN SIX WEEKS. WE HAVE ADDED THE BLOOD PRES SURE MEDICATION METOPROLOL YOUR BLOOD PRESSURE HAS BEEN HIGH DURING HER HOSPITAL STAY. HOLD BLOOD PRESSURE MEDICATION METOPROLOL FOR SBP LESS THAN 100 AND HEART RATE LESS THAN 60. IF CONDITION WORSEN OR YOU DEVELOP CHEST PAIN AGAIN, CAN USE NITRO SUBLINGUAL TABLET AND THEN GO TO THE NEAREST ER IMMEDIATELY. *Problems/Diagnosis: (1) Nonspecific chest pain Status: Resolved Total Time Spent on D/C: > 30 Minutes Date of Service: Nov 26, 2024 Billing Provider: AMOR MORGAN MD, SANJAY, ELLYN Nov 26, 2024 17:34
== END 2024-11-26 13:17 | disposition home or self-care (01) | DRG 311 ==
LOC: ER 17:05 → ED HOLD 21:10 → PCU 3S 22:38
PROVIDERS: ADMIT Internal Medicine Sleep Medicine; ATTEND Family Medicine
PROC: 4A02XM4 Measurement of Cardiac Total Activity, External Approach (ICD-10-PCS; principal; 2024-11-24)
PROC: 3E033HZ Introduction of Radioactive Substance into Peripheral Vein, Percutaneous Approach (ICD-10-PCS; 2024-11-24)
DX: I20.0 Unstable angina (principal); N17.0 Acute kidney failure with tubular necrosis; E11.9 Type 2 diabetes mellitus without complications; K21.9 Gastro-esophageal reflux disease without esophagitis; I10 Essential (primary) hypertension; E78.5 Hyperlipidemia, unspecified; G89.29 Other chronic pain; M54.9 Dorsalgia, unspecified; F41.9 Anxiety disorder, unspecified; Z88.5 Allergy status to narcotic agent; Z79.82 Long term (current) use of aspirin; Z79.899 Other long term (current) drug therapy; Z56.0 Unemployment, unspecified
CPT/HCPCS: 36415; 71045; 72125; 78452; 80053; 80061; 80305; 81003; 82570; 83036; 83735; 83880; 83930; 84100; 84300; 84443; 84484; 85025; 85379; 87081; 87207; 93005; 93017; 93306; 96360; 99285; A6250; A9500; G0378; J1644; J2785; J7030